=== PATIENT | male | born 1985 | race Caucasian/White ===

== ENCOUNTER 2022-04-26 00:11 | Emergency (ER) | payer OTHER ==
[~2022-04-26] VITALS: Ht 188 cm; Wt 102.1 kg
[2022-04-26] MEDS ORDERED: CEPHALEXIN500 M1 PO (01:17)
[2022-04-26] MEDS ORDERED: HYDROCODON-ACE1 EA10 PO (01:17)
== END 2022-04-26 01:55 | disposition home or self-care (01) ==
LOC: ED 00:11
DX: S67.191A Crushing injury of left index finger, initial encounter (principal); S67.193A Crushing injury of left middle finger, initial encounter; S67.195A Crushing injury of left ring finger, initial encounter; S62.635A Displaced fracture of distal phalanx of left ring finger, initial encounter for closed fracture; Z20.822 Contact with and (suspected) exposure to COVID-19; W23.0XXA Caught, crushed, jammed, or pinched between moving objects, initial encounter
CPT/HCPCS: 73130; 96374; 96375; 99283-25; A9270; C9803; J0690; J1170; J2405; U0003

== ENCOUNTER 2022-04-26 23:19 | Emergency (ER) | payer OTHER, BC ==
[~2022-04-26] VITALS: Ht 188 cm; Wt 102.1 kg
[~2022-04-26 23:19] MED LIST: CEPHALEXIN500 M1 PO; HYDROCODON-ACE1 EA10 PO
--- OUTSIDE RECORDS SUMMARY | 2022-04-26 23:24 | XMS ---
PreManage Notification: MARYAN PEREA Security Conference Service Coordinator Events No recent Security Events currently on file CRITERIA MET - [facility] - 3 Facilities in 90 Days - [facility] - 2 Visits in 30 Days CARE PROVIDERS There are no care providers on record at this time. Denilson has no Care Guidelines for this patient. EVandana VISIT COUNT (12 MO.) 1 Nawaf Burton 1 [facility] [address] [place] [id number] PATRICIA Oakley TOTAL 5 NOTE: Visits indicate total known visits. ED/[facility] [place] (12 MO.) 04/26/2022 23:23 [facility] TYPE: Emergency COMPLAINT: - MEDICATION REFILL 04/26/2022 06:32 [facility] TYPE: Emergency DIAGNOSES: 38785. HAND LAC . Complete traumatic metacarpophalangeal amputation of unspecified finger, initial encounter [id number]. Crushing injury of left hand, initial encounter 57473. Unspecified open wound of left hand, initial encounter [facility] [place] [facility] COMPLAINT: - SMASH FINGERS AT WORK [facility] DIAGNOSES: 52030. MEDICAL CLEARANCE 77026. Encounter for general adult medical examination without abnormal findings 05/17/2021 17:24 [facility] [place] TYPE: Emergency DIAGNOSES: - Animal Bite - Open bite of left forearm, initial encounter - Bitten by dog, initial encounter - Elevated blood-pressure reading, without diagnosis of hypertension INPATIENT VISIT TRACKING (12 MO.) No inpatient visits to display in this time frame [email or web address]
== END 2022-04-26 23:40 | disposition home or self-care (01) ==
LOC: ED 23:19
DX: Z76.0 Encounter for issue of repeat prescription (principal); S67.10XD Crushing injury of unspecified finger(s), subsequent encounter
CPT/HCPCS: 99281; A9270